=== PATIENT | male | born 1965 | race Caucasian/White ===

== ENCOUNTER 2024-11-19 06:32 | Emergency (ER) | payer MEDICARE, MEDICAID, SELFPAY ==
--- OUTSIDE RECORDS SUMMARY | 2023-06-09 11:23 | XMS_ITS | Continuity of Care Document ---
Author Organization [facility] Address [address] [place] [address] Phone Care Team Providers Care Metal Forger'S Assistant Name Role Phone Skip PT, BREEZYT, Amrita Unavailable Unavailab le Advance Directives Directive Yes / No Effective Date File Name No Information Encounters Encounter Description Practice Location Reason(s) For Visit Diagnoses Date Provider Providers Copied on Encounter [facility], [address], [place], [place], [id number], [place] tel:[phone] [place] No Information Skip Crowe. . Family History Family Member Type Diagnosis Age At Onset No Information Payers Payer name Insurance type Covered constitution party ID Authoriza tion(s) [facility] Medicare Complete 16 [id number] Medicaid OON Write Off CI 00 Social History Type Description Quantity Date Captured Comments Sex Male Smoking Status No Information Chief Complaint And Reason For Visit No Information Reason For Referral Reason For Referral No Information History Of Present Illness Encounter Date Complaint History Of Prese nt Illness No Information Functional Status Date Functional Assessmen t No Information Instructions Date Instruction Additional Infor mation No Information Assessments Type Assessment Date No Information Patient Care Teams Name Effective Dates (start - stop) Status Members No Information
[2024-11-19 06:33] VITALS: BP 117/71; PULSE 63; RESP 17; TEMP 36.3; O2SAT 95; BMI 27.6
--- NOTE | 2024-11-19 06:39 | ECG_ITS ---
Search to Phone [employer] Test Date: 2024-11-19 Pat Name: Fredis Cochran Department: Room: Gender: Male Nursery Nurse: : 1965 Requested By: Lexa Mcneal Order Number: [id number] Guadalupe MD: Tito Jerry M.D. Measurements Intervals [place] Rate: 61 P: 64 AK: 174 QRS: -22 QRSD: 102 T: 59 QT: 434 QTc: 439 Interpretive Statements SINUS RHYTHM POSSIBLE LEFT ATRIAL ENLARGEMENT [-0.1mV P-WAVE IN V1/V2] No previous ECG available for comparison Electronically Signed On 11-19-2024 08:39:37 CDT by Tito Jerry M.D. [email or web address]
--- OUTSIDE RECORDS SUMMARY | 2024-11-19 06:48 | XMS_ITS | Encounter Summary ---
Author Organization [facility] Address [address] [place] [address] Care Team Providers Care Hackler Doll Wigs Name Role Phone Ashutosh Brock MD Primary Care Provider [phone] Encounter Details Date Type Department Care Team (Latest Contact Info) Description 12/30/1999 Outpatient Historical [facility] D[facility] Tyler, NO ADDRESS ON FILE Dermatophytosis of groin and perianal area (Primary Dx); Cellulitis and abscess of unspecified site Social History Tobacco Use Types Packs/Day Years Used Date Smoking Tobacco: Never Assessed Sex and Gender Information Value Date Recorded Sex Assigned at Not on file 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
--- OUTSIDE RECORDS SUMMARY | 2024-11-19 06:48 | XMS_ITS | Encounter Summary ---
Author Organization [facility] Address [address] [facility] [place] [address] Care Team Providers Care Subgrade Roller Operator Name Role Phone Ashutosh Brock MD Primary Care Provider [phone] Encounter Details Date Type Department Care Team (Late st Contact Info) Description 11/12/1999 Outpatient Historical [facility] Darius Tyler, NO ADDRESS ON FILE Unspecified essential hypertension (Primary Dx); Chronic ischemic heart disease, unspecified; Allergy, unspecified not elsewhere classified; Unspecified hemorrhoids without mention of complication Social History Tobacco Use Types Packs/Day Years Used Date Smoking Tobacco: Never Assessed Sex and Gender Information Value Date Recorded Sex Assigned at Not on file 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
--- OUTSIDE RECORDS SUMMARY | 2024-11-19 06:48 | XMS_ITS | Encounter Summary ---
Author Organization 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
--- OUTSIDE RECORDS SUMMARY | 2024-11-19 06:48 | XMS_ITS | Encounter Summary ---
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
--- OUTSIDE RECORDS SUMMARY | 2024-11-19 06:48 | XMS_ITS | Clinical Summary ---
Author Organization [facility] Address [address] [place] [address] Phone Care Team Providers Care Harness Repairer Name Role Phone Ashutosh Brock MD Primary Care Provider [phone] [phone] Allergies No known active allergies Medications CARVEDILOL (COREG ORAL) Take by mouth 2 times daily. Active atorvastatin (LIPITOR) 80 mg tablet Take 80 mg by mouth Daily LATE. Active AMLODIPINE BESYLATE (NORVASC ORAL) Take by mouth daily. Active ISOSORBIDE ORAL Take 30 mg by mouth daily. Active metFORMIN (GLUCOPHAGE) 500 mg tablet Take 500 mg by mouth 2 times daily. Active diazepam (VALIUM) 10 mg tablet Take 10 mg by mouth 3 times daily as needed for Anxiety. Active oxyCODONE-aceta minophen (PERCOCET) 10-325 mg Tablet Take 1 Tab by mouth every 4 hours as needed for Pain, Severe. Active LISINOPRIL ORAL Take by mouth daily. Active aspirin (TRESSA) 325 mg tablet Take 1 Tab by mouth every 24 hours. 30 Tab 0 11/30/2013 Active nicotine (NICODERM CQ) 14 mg/24 hr patch Apply 1 Patch to skin as directed every 24 hours. 7 Patch 0 11/30/2013 Active Active Problems Problem Noted Date Diagnosed Date Unstable angina 11/30/2013 Diabetes mellitus 11/30/2013 Hypertension 11/30/2013 Dyslipidemia 11/30/2013 CAD S/P percutaneous coronary angioplasty 2013 Family History Medical History Relation Name Comments Heart Disease Brother Healthy Daughter Heart Disease Father High Cholesterol Mother Hypertension Mother Healthy Son Relation Name Status Comments Brother Alive Daughter Alive Father Alive Mother Alive Son Alive Social History Tobacco Use Types Packs/Day Years Used Date Smoking Tobacco: Former Cigarettes Q uit: 11/29/2005 Smokeless Tobacco: Current Chew Comments:UNABLE TO DETERMINE PACK/YEARS FROM PT. 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 Gender Identity Not on file Sexual Orientation Not on file Occupation Industry Job Start Date Job End Date Not on file Not on file Not on file Not on file Last Filed Vital Signs Vital Sign Reading Time Taken Comments Blood Pressure 150/88 11/30/2013 2:50 PM CDT Pulse 80 11/30/2013 2:50 PM CDT Temperature 36.5 C (97.7 F) 11/30/2013 2:50 PM CDT Respiratory Rate 18 11/30/2013 2:50 PM CDT Oxygen Saturation 97% 11/30/2013 2:50 PM CDT Inhaled Oxygen Concentration - - Weight 102.5 kg (226 lb) 11/30/2013 3:10 AM CDT Height 182.9 cm (6') 11/29/2013 6:58 PM CDT Body Mass Index 30.65 11/29/2013 6:58 PM CDT Plan of Treatment Health Maintenance Due Date Last Done Comments DIABETES ANNUAL FOOT EXAM 1982 DIABETES MICROALBUMIN ANNUAL SCREEN 1982 DTAP/TDAP/TD VACCINES (1 - Tdap) 06/01/1983 COLORECTAL SCREENING 2009 Colorectal Cancer Screening 2009 FIT-DNA Q 3 years 2009 FIT/FOBT Q 1 year 2009 Flex Sig/CT Colonography Q 5 years 2009 ZOSTER VACCINE (1 of 2) 2014 LDL CHOLESTEROL ANNUAL 11/29/2014 11/29/2013 DIABETES ANNUAL RETINAL EXAM 03/05/2016 03/05/2015, 03/05/2015 DIABETES HBA1C Q 6 MONTHS 11/16/20172017, 03/28/2017, 01/30/2017, Additional history exists RSV VACCINE (60+ or ) (1 - Risk 60-74 years 1-dose series) 2024 INFLUENZA VACCINE (#1) 2024 HEPATITIS B VACCINES Aged Out No long er eligible based on patient's age to complete this topic Procedures Procedure Name Priority Date/Time Associated Diagnosis Comments LIPID PANEL Routine 11/29/2013 7:16 PM CDT HEMOGLOBIN A1C Routine 11/29/2013 7:16 PM CDT from Last 3 Months or Most Recently Relevant to Health Maintenance Results * (ABNORMAL) HEMOGLOBIN A1C (11/29/2013 7:16 PM CDT) HEMOGLOBIN A1C 7.7(H) 4.0 - 6.0 %A1C [facility] Comment: This test was performed on a [employer] II Instrument using HPLC methodology. Blood 11/29/2013 7:16 PM CDT us Hamid (Excluded Provider) Tamara MAR CHEMISTRY OR DERABLES Final Result Performing Organization Address [facility] de Phone Number [facility] CLIA# [id number] [address] [place] [phone] * (ABNORMAL) LIPID PANEL (11/29/2013 7:16 PM CDT) Pathologist [facility] CHOLESTEROL 122 0 - 200 mg/dL [facility] TRIGLYCERIDE 79 0 - 150 mg/dL [facility] HDL 41 40 - 59 mg/dL [facility] LDL CALCULATED 65 0 - 100 mg/dL [facility] Comment: ATPIII Guideline Reference Ranges for Lipid Panel/Calculated LDL Reference: <100 Optimal 100-129 Near Optimal 130-159 Borderline High >160 High Risk CALCULATED TOTAL CHOLESTEROL TO HDL RATIO 2.98(L) 3.43 - 4.97 [facility] Blood 11/29/2013 7:16 PM CDT us Hamid (Excluded Provider) Tamara MAR CHEMISTRY OR DERABLES Final Result Performing Organization Address [facility] [[email or web address]] Co de Phone Number [facility] CLIA# [id number] [address] [place] [address] from Last 3 Months or Most Recently Relevant to Health Maintenance Insurance MEDICARE PART A AND B [place]ICAID [place] Advance Directives For more information, please contact: [phone] * Full Code (Latest Code Status on File) Date Activated Date Inactivated Comments 11/30/2013 9:11 AM 11/30/2013 5:23 PM * Full Code Date Activated Date Inactivated Comments 11/30/2013 8:02 AM 11/30/2013 9:11 AM * Full Code Date Activated Date Inactivated Comments 11/29/2013 10:30 PM 11/30/2013 8:02 AM Care Teams Harness Repairer Relationship Specialty Start Date End Date Ashutosh Brock MD PCP - General Internal Medicine 11/29/13
--- OUTSIDE RECORDS SUMMARY | 2024-11-19 06:48 | XMS_ITS | Encounter Summary ---
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
--- OUTSIDE RECORDS SUMMARY | 2024-11-19 06:48 | XMS_ITS | Encounter Summary ---
Author Organization [facility] Address [address] [place] [address] Care Team Providers Care Car Seat Coverer Name Role Phone Ashutosh Brock MD Primary Care Provider [phone] [phone] Encounter Details Date Type Department Care Team (Late st Contact Info) Description 03/25/2000 Outpatient Historical [facility] ELINA Darius Colvin, NO ADDRESS ON FILE Allergy, unspecified not elsewhere classified (Primary Dx); Dermatophytosis of groin and perianal area Social History Tobacco Use Types Packs/Day Years Used Date Smoking Tobacco: Never Assessed Sex and Gender Information Value Date Recorded Sex Assigned at Not on file 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
--- NOTE | 2024-11-19 07:21 | XRR_ITS ---
PROCEDURE INFORMATION: Exam: XR Chest Exam date and time: 11/19/2024 7:27 AM Age: 59 years old Clinical indication: Cough and dyspnea; Additional info: Dyspnea/cough TECHNIQUE: Imaging protocol: Radiologic exam of the chest. Views: 1 view. Total images: 210 COMPARISON: No relevant prior studies available. FINDINGS: Lungs: Trace atelectasis or scar noted in the left lung base. Pleural spaces: Unremarkable. No pleural effusion. No pneumothorax. Heart/Mediastinum: Coronary stents noted. Bones/joints: Changes of sternotomy are noted. XR/XR chest 1V portable [id number] IMPRESSION: Trace atelectasis or scar noted in the left lung base.
[2024-11-19 07:26] LABS: Hematocrit 35.6 % (37-53); Hemoglobin 12.20 g/dL (11.27-16.99); Mean Corpuscular HGB Conc 34.3 g/dL (30-55); Mean Corpuscular Hemoglobin 34.2 pg (27-33); Mean Corpuscular Volume 99.7 fl (82-101); Nucleated Red Blood Cells % 0 %; Platelet Count 228 10^3/cmm (157-399); Red Blood Count 3.57 10^6/uL (3.85-5.65); White Blood Count 6.86 10^3/uL (3.29-11.43)
--- NOTE | 2024-11-19 07:27 | ECG_ITS ---
[facility]: 2024-11[facility]19 Pat Name: Fredis Cochran Department: Room: Gender: Male Billet Header: : 1965 Requested By: Ajit Skaggs Order Number: [id number] Anayeli MD: Tito Jerry M.D. Measurements Intervals [place] Rate: 59 P: 43 IN: 178 QRS: -17 QRSD: 116 T: 70 QT: 449 QTc: 445 Interpretive Statements SINUS BRADYCARDIA POSSIBLE LEFT ATRIAL ENLARGEMENT [-0.1mV P-WAVE IN V1/V2] INFERIOR MYOCARDIAL INFARCTION , PROBABLY OLD [40+ ms Q WAVE AND/OR ST/T ABNORMALITY IN II/aVF] Compared to ECG 11/19/2024 06:39:01 Myocardial infarct finding now present Sinus rhythm no longer present Electronically Signed On 11-19-2024 08:39:27 CDT by Tito Jerry M.D. [email or web address]
--- NOTE | 2024-11-19 07:35 | W.ED.WEAKNES ---
HPI - Weakness General: Chief complaint: Weakness Stated complaint: LETHARGY Time Seen by Provider: 11/19/24 06:54 History of Present Illness: 59-year-old male presents to the emergency room says he was traveling through the area on the way to [place] got very lightheaded and dizzy. He stopped got something to eat drove on 1 about approximately another 8 to 10 miles then he got very lightheaded and dizzy pulled over in a local marijuana dispensary and was found by the staff there in the parking lot. He does not recall a lot of the details EMS was called and he was brought to the emergency room. He is diabetic's blood sugar on arrival here was in the 200s. He is not having any chest pain at this time he has had previous myocardial infarctions he has several stents and a bypass. He currently is on metformin for his diabetes. He denies any fever sweats chills no chest pain or abdominal pain. Patient reports he had a near syncopal episode earlier this week was seen in the hospital was thought to be related to his blood pressure he was given clonidine. Associated symptoms: Denies chest pain, chills, dysuria or fever(s) Related Data Home Medications ?Medication ?Instructions ?Recorded ?Confirmed atorvastatin 80 mg tablet 80 mg PO QPM 11/19/24 11/19/24 carvedilol 25 mg tablet 25 mg PO BID 11/19/24 11/19/24 clonidine HCl 0.1 mg tablet 0.1 mg PO BID 11/19/24 11/19/24 dicyclomine 20 mg tablet 20 mg PO QID 11/19/24 11/19/24 empagliflozin 25 mg tablet 25 mg PO QAM 11/19/24 11/19/24 (Jardiance) evolocumab 140 mg/mL subcutaneous 140 mg SUBCUT .Q14D 11/19/24 11/19/24 pen injector (Wilton Chicas) ezetimibe 10 mg tablet 10 mg PO DAILY 11/19/24 11/19/24 furosemide 20 mg tablet 40 mg PO DAILY 11/19/24 11/19/24 isosorbide mononitrate 120 mg 120 mg PO QAM 11/19/24 11/19/24 tablet,extended release 24 hr metformin 500 mg tablet,extended 1,000 mg PO BID 11/19/24 11/19/24 release 24 hr omeprazole 40 mg capsule,delayed 40 mg PO DAILY 11/19/24 11/19/24 release ondansetron 8 mg disintegrating 8 mg PO Q8H PRN Nausea And Vomiting 11/19/24 11/19/24 tablet oxycodone-acetaminophen 10 mg-325 1 tab PO Q6H PRN Pain 11/19/24 11/19/24 mg tablet ranolazine 1,000 mg 1,000 mg PO BID 11/19/24 11/19/24 tablet,extended release,12 hr sacubitril 49 mg-valsartan 51 mg 1 tab PO BID 11/19/24 11/19/24 tablet (Entresto) spironolactone 25 mg tablet 25 mg PO DAILY 11/19/24 11/19/24 tamsulosin 0.4 mg capsule 0.4 mg PO QPM 11/19/24 11/19/24 tirzepatide 7.5 mg/0.5 mL 7.5 mg SUBCUT Q7D 11/19/24 11/19/24 subcutaneous pen injector (Hesham) Previous Rx's ?Medication ?Instructions ?Recorded isosorbide mononitrate 120 mg 120 mg PO BID #60 tabs 11/19/24 tablet,extended release 24 hr Allergies Allergy/AdvReac Type Severity Reaction Status Date / Time hydromorphone Allergy ADR-Itching Verified 11/19/24 06:46 ibuprofen Allergy ADR/ALGY-Pa Verified 11/19/24 06:46 lpitations Review of Systems Const: Denies: fever(s) or chills Card: Denies: chest pain Resp: Denies: dyspnea GI: Denies: abdominal pain : Denies: dysuria, urinary frequency or urinary urgency Musc: Denies: neck pain or back pain Skin/Breast: Denies: rash Physical Exam Const: GENERAL APPEARANCE: cooperative and comfortable ORIENTATION/CONSCIOUSNESS: Yes awake, Yes oriented to person, Yes oriented to place and Yes oriented to time HENMT: COMMON NORMALS: normocephalic, atraumatic and hearing grossly normal bilaterally HEAD & SCALP: normocephalic and atraumatic Resp: COMMON NORMALS: normal respiratory effort, No retractions, No use of accessory muscles and clear to auscultation bilaterally AUSCULTATION: clear to auscultation bilaterally Cardio: COMMON NORMALS: regular rate, regular rhythm and No murmurs present (Cardio) RATE: regular rate RHYTHM: regular rhythm GI: COMMON NORMALS: Soft to palpation and No hepatosplenomegaly present AUSCULTATION: Yes normoactive bowel sounds PALPATION: Yes Soft to palpation, No Tenderness to palpation present (GI), No Guarding due to palpation present (GI) and Yes No hepatosplenomegaly present Extremity: COMMON NORMALS: normal to inspection, capillary refill normal, no clubbing, cyanosis or edema, no calf tenderness and no pedal edema Neuro: SENSORIUM/ORIENTATION: Yes oriented to person, Yes oriented to place and Yes oriented to time Skin: COMMON NORMALS: no rashes or lesions noted GENERAL SKIN EXAM: no rashes or lesions noted Course Vital Signs: Vital signs: Vital Signs Temperature 97.4 F L 11/19/24 06:33 Pulse Rate 64 11/19/24 10:04 Respiratory Rate 17 11/19/24 06:33 Blood Pressure 178/97 11/19/24 10:04 Pulse Oximetry 98 11/19/24 10:04 Oxygen Delivery Me thod Room Air 11/19/24 06:33 MDM - Weakness Medical Decision Making Patient presenting symptoms are very concerning. He has a strong history of coronary artery disease has not had any testing for a time medications indicate he likely has a poor ejection fraction he is on ranolazine and Entresto. His cardiac enzymes do not show significant abnormality. His EKG does not show any acute changes some evidence of previous NH. Advised the patient that he should stay and be admitted for further evaluation for these syncopal episodes very concerned that earlier in the week he had a near syncopal episode and now he did fully lose consciousness. He does not want to stay despite long conversation and explanation of the reasons why I think it is best for him given his history his presenting symptoms he still wishes to go. His blood pressure is still elevated. Will increase his isosorbide mononitrate to 220 mg 1 pill twice a day. 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 Medical Records I reviewed the patient's medical records. Lab Data I reviewed the patient's lab results. 11/19/24 06:42 11/19/24 06:42 Radiology Impressions Chest X-Ray 11/19/24 07:21 IMPRESSION: Trace atelectasis or scar noted in the left lung base. Head CT 11/19/24 08:27 IMPRESSION: No acute intracranial abnormality. Laboratory Results WBC 6.86 10^3/uL (3.29-11.43) 11/19/24 06:42 RBC 3.57 10^6/uL (3.85-5.65) L 11/19/24 06:42 Hgb 12.20 g/dL (11.27-16.99) 11/19/24 06:42 Hct 35.6 % (37-53) L 11/19/24 06:42 MCV 99.7 fl (82-101) 11/19/24 06:42 MCH 34.2 pg (27-33) H 11/19/24 06:42 MCHC 34.3 g/dL (30-55) 11/19/24 06:42 RDW 15.0 % (12.1-15.1) 11/19/24 06:42 Plt Count 228 10^3/cmm (157-399) 11/19/24 06:42 MPV 10.1 fL (7.4-10.4) 11/19/24 06:42 Neut % (Auto) 70.9 % 11/19/24 06:42 Lymph % (Auto) 16.9 % 11/19/24 06:42 [place] % (Auto) 9.0 % 11/19/24 06:42 Eos % (Auto) 2.3 % 11/19/24 06:42 Baso % (Auto) 0.6 % 11/19/24 06:42 Neut # (Auto) 4.86 10^3/uL (1.8-7.7) 11/19/24 06:42 Lymph # (Auto) 1.2 10^3/uL (0.8-4.8) 11/19/24 06:42 [place] # (Auto) 0.6 10^3/uL (0.2-0.9) 11/19/24 06:42 Eos # (Auto) 0.2 10^3/uL (0.0-0.8) 11/19/24 06:42 Baso # (Auto) 0.0 10^3/uL (0.0-0.1) 11/19/24 06:42 Nucleated RBC % (auto) 0 % 11/19/24 06:42 Nucleated RBCs # 0.0 /100WBC 11/19/24 06:42 Sodium 135 mmol/L (136-145) L 11/19/24 06:42 Potassium 4.2 mmol/L (3.5-5.1) 11/19/24 06:42 Chloride 101 mmol/L (98-107) 11/19/24 06:42 Carbon Dioxide 26 mmol/L (22-29) 11/19/24 06:42 Anion Gap 12.2 (5-19) 11/19/24 06:42 BUN 14 mg/dL (8-23) 11/19/24 06:42 Creatinine 1.3 mg/dL (0.7-1.2) H 11/19/24 06:42 GFR Calculation 56.3 mL/min (90-130) L 11/19/24 06:42 Glucose 218 mg/dL (65-115) H 11/19/24 06:42 Calculated Osmolality 287 mOsm/kg (285-295) 11/19/24 06:42 Calcium 9.2 mg/dL (8.5-10.5) 11/19/24 06:42 Magnesium 1.6 mg/dL (1.7-2.3) L 11/19/24 06:42 Total Bilirubin 0.5 mg/dL (0.15-1.2) 11/19/24 06:42 AST 12 U/L (0-40) 11/19/24 06:42 ALT 12 U/L (0-41) 11/19/24 06:42 Alkaline Phosphatase 101 U/L (40-130) 11/19/24 06:42 Troponin T Baseline 34 ng/L (0-15) H 11/19/24 06:42 Troponin T 120 Minute 29.71 ng/L (0-15) H 11/19/24 08:44 Delta Troponin T -4.29 ABS# (0-10) L 11/19/24 08:44 Total Protein 5.8 g/dL (6.6-8.7) L 11/19/24 06:42 Albumin 3.9 g/dL (3.5-5.2) 11/19/24 06:42 Globulin 1.9 g/dL (1.3-4.6) 11/19/24 06:42 All radiology interpretation(s) finalized by discharge EKG Data EKG 1: Interpretation: 11/19/2024 7:27 AM sinus bradycardia. Ventricular rate 59 FL interval 178 QTc 447 Q waves in [address] elevation no T wave inversion. EKG 2: Interpretation: 11/19/2024 918 sinus rhythm rate of 62. Normal 167 QTc 437 evidence of prior myocardial infarction with Q waves in 2 and aVF. No acute ST changes or T wave inversions no significant change from EKG done earlier on the same day Discharge Plan Discharge Patient Disposition: Home Clinical Impression: Syncope, Hx of coronary artery disease, Diabetes mellitus Condition: Stable Prescriptions: New isosorbide mononitrate 120 mg tablet extended release 24 hr 120 mg PO BID Qty: 60 0RF No Action atorvastatin 80 mg tablet 80 mg PO QPM carvedilol 25 mg tablet 25 mg PO BID clonidine HCl 0.1 mg tablet 0.1 mg PO BID omeprazole 40 mg capsule,delayed release(DR/EC) 40 mg PO DAILY spironolactone 25 mg tablet 25 mg PO DAILY ondansetron 8 mg tablet,disintegrating 8 mg PO Q8H PRN (Reason: Nausea And Vomiting) isosorbide mononitrate 120 mg tablet extended release 24 hr 120 mg PO QAM oxycodone-acetaminophen 10-325 mg tablet 1 tab PO Q6H PRN (Reason: Pain) tamsulosin 0.4 mg capsule 0.4 mg PO QPM dicyclomine 20 mg tablet 20 mg PO QID furosemide 20 mg tablet 40 mg PO DAILY metformin 500 mg tablet extended release 24 hr 1,000 mg PO BID ezetimibe 10 mg tablet 10 mg PO DAILY ranolazine 1,000 mg tablet extended release 12 hr 1,000 mg PO BID Jardiance 25 mg tablet 25 mg PO QAM sacubitril-valsartan [Entresto] 49-51 mg tablet 1 tab PO BID Repatha SureClick 140 mg/mL pen injector 140 mg SUBCUT .Q14D Mounjaro 7.5 mg/0.5 mL pen injector 7.5 mg SUBCUT Q7D Discharge Orders: Discharge ED (Routine); Ordered 11/19/24 Ordered By: Ajit Rivera Referrals: Ashutosh Brock MD [Primary Care Provider, Family Practice] Discharge Diet: Usual diet Discharge Activity: Resume usual activity Patient Instructions: Opioid Safety, Pain Management, Patient Portal & Sly Instructions Activity Restrictions/Additional Instructions: [facility]. It is very important that you follow up as instructed or that you return to the Emergency Department should you have concerns or if your condition changes or worsens in any way. You were seen in the emergency room after a syncopal episode. Given your history of diabetes hypertension and known coronary artery disease and a similar previous episode earlier this week I strongly recommended admission to the hospital for further evaluation of your heart. After long discussion you preferred to go home. Reviewing your medicine list it is difficult to make further adjustments given the medicines you are already on recommend you increase your isosorbide mononitrate to 1 pill twice a day you should see your assistant professor of history as soon as you are able. If you have any further episodes or change your mind strongly encourage you to return to the emergency room we will gladly reevaluate you. Print Language: Vietnamese Coding Level of Care Code ED Equipment Lead for Nixon Joel
[2024-11-19 07:37] LABS: Troponin(5th) Baseline 34 ng/L (0-15)
[2024-11-19 07:56] LABS: Alanine Aminotransferase 12 U/L (0-41); Albumin Level 3.9 g/dL (3.5-5.2); Alkaline Phosphatase 101 U/L (40-130); Anion Gap 12.2 (5-19); Aspartate Amino Transferase 12 U/L (0-40); Blood Urea Nitrogen 14 mg/dL (8-23); Calcium 9.2 mg/dL (8.5-10.5); Carbon Dioxide 26 mmol/L (22-29); Chloride 101 mmol/L (98-107); Globulin 1.9 g/dL (1.3-4.6); Glucose 218 mg/dL (65-115); Magnesium 1.6 mg/dL (1.7-2.3); Osmolality Calculated 287 mOsm/kg (285-295); Potassium 4.2 mmol/L (3.5-5.1); Sodium 135 mmol/L (136-145); Total Protein 5.8 g/dL (6.6-8.7)
[2024-11-19 07:59] LABS: Creatinine Clr Calc Pharmacy 71.4301
--- NOTE | 2024-11-19 08:01 | PC.PHAR ---
Addendum entered by Thania Dias 11/19/24 09:19: Pts' pharmacy faxed current med list. Pt states he took his morning meds today. Original Note: Pt states he doesn't know all the medications he takes. Will verify with [facility] in [place], when they open at 8:30am
--- NOTE | 2024-11-19 08:27 | CTR_ITS ---
PROCEDURE INFORMATION: Exam: CT Head Without Contrast Exam date and time: 11/19/2024 8:46 AM Age: 59 years old Clinical indication: Syncope and collapse TECHNIQUE: Imaging protocol: Computed tomography of the head without contrast. Total images: 303 Radiation optimization: All CT scans at this facility use at least one of these dose optimization techniques: automated exposure control; mA and/or kV adjustment per patient size (includes targeted exams where dose is matched to clinical indication); or iterative reconstruction. COMPARISON: No relevant prior studies available. RADIATION DOSE METRICS: Total DLP (mGy-cm): 1160.08 FINDINGS: Brain: Normal. No hemorrhage. Unremarkable white matter. No mass effect. Cerebral ventricles: No ventriculomegaly. Paranasal sinuses: Visualized sinuses are unremarkable. No fluid levels. Mastoid air cells: Visualized mastoid air cells are well aerated. Bones: Unremarkable. No acute fracture. Soft tissues: Unremarkable. CT/CT head wo con* [id number] IMPRESSION: No acute intracranial abnormality.
[2024-11-19 09:09] LABS: Troponin 5 2HR 29.71 ng/L (0-15)
[2024-11-19 09:10] LABS: Troponin 5 2HR Delta -4.29 ABS# (0-10)
[2024-11-19 09:15] VITALS: BP 157/92; PULSE 63; O2SAT 99
--- NOTE | 2024-11-19 09:18 | ECG_ITS ---
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 Measurements Intervals [place] Rate: 62 P: 52 [place]: 167 QRS: -24 QRSD: 106 T: 110 QT: 433 QTc: 440 Interpretive Statements SINUS RHYTHM POSSIBLE LEFT ATRIAL ENLARGEMENT [-0.1mV P-WAVE IN V1/V2] MODERATE T-WAVE ABNORMALITY, CONSIDER LATERAL ISCHEMIA [-0.1+ mV T-WAVE IN I/aVL/V5/V6] Compared to ECG 11/19/2024 07:27:47 T-wave abnormality now present Possible ischemia now present Sinus bradycardia no longer present Myocardial infarct finding no longer present Electronically Signed On 11-19-2024 09:37:48 CDT by Tito Jerry M.D. [email or web address]
[2024-11-19] MEDS: hyDRALAzine 20 mg/mL INJ 1 mL IVP (09:55)
[2024-11-19 10:03] VITALS: BP 178/97; PULSE 64; O2SAT 98
[2024-11-19 10:04] VITALS: BP 178/97; PULSE 64; O2SAT 98
== END 2024-11-19 10:07 | disposition home or self-care (01) ==
PROVIDERS: Emergency Provider Family Medicine; PCP Family Medicine
DX: R55 Syncope and collapse (principal); I25.10 Atherosclerotic heart disease of native coronary artery without angina pectoris; E11.9 Type 2 diabetes mellitus without complications; Z79.84 Long term (current) use of oral hypoglycemic drugs
CPT/HCPCS: 36415; 36416; 70450; 71045; 80053; 82962; 83735; 84484; 85025; 93005; 96374; 99285; J0360